=== PATIENT | female | born 1955 | race Asian ===

== ENCOUNTER 2017-02-15 13:10 | Emergency (ER) | payer BC, OTHER ==
[~2017-02-15] VITALS: Ht 157.5 cm; Wt 49.9 kg
--- NOTE | 2017-02-15 15:13 | Emergency Room Report ---
History of Present Illness General Chief Complaint: Multiple Trauma/Fall Source: Patient (Shilpa Rosenberg) Present Illness HPI 61 Yo female presents to the ED c/o Left knee pain, left shoulder pain and neck pain status post mechanical fall this afternoon, no LOC, not on blood thinning medications, no incontinence. reports abrasion to the left anterior knee, denies bruises, erythema or open lesions. pt. states she had one motrin this AM , but no medications since fall. denies dizziness prior to fall, palpitations, or lightheadedness. Denies numbness tingling or loss of sensation or gross motor movements of the extremities, incontinence of bowel or bladder. Denies CP , Palpitations, LOC, AMS, dizziness, Changes in Vision, Sensation, paresthesias , or a sudden severe headache. (Shilpa Rosenberg) Allergies: Coded Allergies: No Known Allergies (Unverified , 02/15/17) Patient History Past Medical History: see triage record Past Surgical History: none Pertinent Family History: none Last Menstrual Period: N/A Now: No Immunizations: UTD Reviewed Nursing Documentation: PMH: Agreed, PSxH: Agreed (Shilpa Rosenberg) Nursing Documentation-PMH Hx Hypertension: Yes - HIGH CHOLESTEROL (Shilpa Rosenberg) Review of Systems All Other Systems: negative except mentioned in HPI (Shilpa Rosenberg) Physical Exam Vital Signs Date Time Temp Pulse Resp B/P Pulse Ox O2 Delivery O2 Flow Rate FiO2 02/15/17 13:09 97.9 114 18 179/82 98 Room Air Sp02 EP Interpretation: reviewed, normal General Appearance: no apparent distress, alert, GCS 15, non-toxic Head: normocephalic, atraumatic Eyes: bilateral eye PERRL, bilateral eye normal inspection ENT: hearing grossly normal, normal pharynx, no angioedema, normal voice Neck: full range of motion, supple/symm/no masses, tender lateral - left lateral and midline ttp to c-spine, tender midline Respiratory: chest non-tender, lungs clear, normal breath sounds, speaking full sentences Cardiovascular #1: regular rate, rhythm, no edema Musculoskeletal: back normal, gait/station normal, normal range of motion, tender - TTP to the anterior left knee, no increased laxity, no obvious deformity, no swelling abrasion noted. TTp to the left shoulder with pain on ROM , no obvious deformities noted Neurologic: alert, oriented x3, responsive, motor strength/tone normal, sensory intact, speech normal Psychiatric: judgement/insight normal, memory normal, mood/affect normal Skin: normal color, warm/dry, well hydrated, abrasions - anterior left kene (Shilpa Rosenberg) Medical Decision Making PA Attestation Dr. Mcghee is my supervising Physician whom patient management has been discussed with. (Shilpa Rosenberg) Diagnostic Impression: Primary Impression: Contusion of knee, left Additional Impressions: Abrasion Shoulder contusion Qualified Codes: S40.012A - Contusion of left shoulder, initial encounter Acute strain of neck muscle Qualified Codes: S16.1XXA - Strain of muscle, fascia and tendon at neck level , initial encounter ER Course Pt. presents to the ED c/o Left knee pain, left shoulder pain and neck pain status post fall this afternoon, no LOC, not on blood thinning medications, no incontinence. Ddx considered but are not limited to Fracture, dislocation, contusion, Sprain/ Strain/Spasm. Vital signs: are WNL, pt. is afebrile H&PE are most consistent with abrasion and most likely soft tissue contusions will r/o fractures with imaging. ORDERS: - X-ray Left knee 3 views - negative for fx, Dislocation, or significant soft tissue injury, per preliminary read in ED by Dr. Stoddard electronically signed 02/15/2017 @ 1458 - X-ray Left Shoulder 3 views - negative for fx, Dislocation, or significant soft tissue injury, per preliminary read in ED by Dr. Stoddard electronically signed 02/15/2017 @ 1458 - X-ray C-Spine 3 views - negative for fx, Dislocation, or significant soft tissue injury, per preliminary read in ED by official radiology report. ED INTERVENTIONS: - Tylenol PO for pain -bacitracin is applied to abrasion by RN. DISCHARGE: At this time pt. is stable for d/c to home. Will provide printed patient care instructions, and any necessary prescriptions. Care plan and follow up instructions have been discussed with the patient prior to discharge. (Shilpa Rosenberg) Chest X-Ray Diagnostic Results Date Electronically Signed: Feb 17, 2017 Time Electronically Signed: 13:51 Interpreting ER Physician: josiah CRUZ Scribe Text Scribe documentation reviewed by me and is accurate (Som Mcghee M.D.) Other X-Ray Diagnostic Results X-Ray ordered: C-SPine # of Views/Limited Vs Complete: 3 View Interpretation: no fractures, no dislocation, no soft tissue swelling Indication: Pain Impression: No acute disease Date Electronically Signed: Feb 15, 2017 Time Electronically Signed: 18:17 Interpreting ER Physician: official radiology report. (Shilpa Rosenberg) Last Vital Signs Date Time Temp Pulse Resp B/P Pulse Ox O2 Delivery O2 Flow Rate FiO2 02/15/17 15:09 97.9 02/15/17 13:09 114 18 179/82 98 Room Air (Shilpa Rosenberg) Disposition: HOME, SELF-CARE Condition: Stable Scripts Acetaminophen* (TYLENOL EXTRA STRENGTH*) 500 Mg Tablet 500 MG ORAL Q6H, #20 TAB 0 Refills Prov: Shilpa Rosenberg 02/15/17 Patient Instructions: Abrasion, [id number], Contusion Additional Instructions: Take medications as directed. Follow up with PCP in 3-5 days Return sooner to ED if new symptoms occur, or current symptoms become worse. - Please note that this Emergency Department Report was dictated using [employer]learn[employer] technology software, occasionally this can lead to erroneous entry secondary to interpretation by the dictation equipment. Shilpa Rosenberg Feb 15, 2017 15:13 Som Mcghee M.D. Feb 17, 2017 13:51
[2017-02-15] MEDS ORDERED: TYLENOL EXTRA500 MG ORAL (15:29)
[2017-02-15] MEDS ORDERED: Bacitracin Oint UD TOPIC ONE (15:30)
[2017-02-15 15:54] VITALS: BP 145/78
[2017-02-15 15:57] VITALS: BP 145/78
--- NOTE | 2017-02-15 18:23 | Diagnostic Imaging Report ---
Indication: PAIN Technique: 3 views of the cervical spine Comparison: none Findings: Bony alignment is normal. No prevertebral soft tissue swelling. No acute fractures. No dislocations. Vertebral body heights and disc spaces are preserved. Impression: Negative
--- NOTE | 2017-02-15 18:26 | Diagnostic Imaging Report ---
Indications: PAIN Technique: Three views of the left knee Comparison: None Findings: No acute fractures. No dislocations. Joint spaces are preserved. No radiopaque foreign body. Normal mineralization. Impression: No acute process
--- NOTE | 2017-02-15 18:27 | Diagnostic Imaging Report ---
Indication: PAIN Technique: 3 views of the left shoulder Comparison: none Findings: No acute fractures. No dislocations. Joint spaces are preserved Impression:Negative
== END 2017-02-15 15:58 | disposition home or self-care (01) ==
LOC: EDBD 13:10 → EMR 13:45
DX: S80.02XA Contusion of left knee, initial encounter (principal); S40.012A Contusion of left shoulder, initial encounter; S40.212A Abrasion of left shoulder, initial encounter; S80.212A Abrasion, left knee, initial encounter; S16.1XXA Strain of muscle, fascia and tendon at neck level, initial encounter; W19.XXXA Unspecified fall, initial encounter; Y92.89 Other specified places as the place of occurrence of the external cause
CPT/HCPCS: 72040; 99284

== ENCOUNTER 2017-02-23 12:43 | Emergency (ER) | payer OTHER ==
[~2017-02-23] VITALS: Ht 157.5 cm; Wt 49.9 kg
[~2017-02-23 12:43] MED LIST: TYLENOL EXTRA500 MG ORAL
--- NOTE | 2017-02-23 13:08 | Emergency Room Report ---
History of Present Illness General Chief Complaint: Pain Source: Patient Present Illness HPI 61-year-old female presents emergency department for followup from fall one week ago. Patient states she still has some mild bruising and pain in the left knee that she rates as 6/10 in severity exacerbated upon walking. Patient denies any trauma or fall. Patient states that she did not fill her prescription as previously prescribed her. Patient states she also did not follow up with her primary care doctor because she felt it was non-necessary since she had a full physical performed by her primary care doctor several days before being evaluated here in the emergency department.Denies numbness tingling or loss of sensation or gross motor movements of the extremities, incontinence of bowel or bladder. Denies CP, Palpitations, LOC, AMS, dizziness, Changes in Vision, Sensation, paresthesias, or a sudden severe headache. Allergies: Coded Allergies: No Known Allergies (Unverified , 02/15/17) Patient History Past Medical History: see triage record Past Surgical History: none Pertinent Family History: none Last Menstrual Period: unk Now: No Immunizations: UTD Reviewed Nursing Documentation: PMH: Agreed, PSxH: Agreed Nursing Documentation-PMH Past Medical History: No History, Except For Hx Hypertension: Yes - HIGH CHOLESTEROL Review of Systems All Other Systems: negative except mentioned in HPI Physical Exam Vital Signs Date Time Temp Pulse Resp B/P Pulse Ox O2 Delivery O2 Flow Rate FiO2 02/23/17 12:54 98.6 79 16 153/83 97 Room Air Sp02 EP Interpretation: reviewed, normal General Appearance: no apparent distress, alert, GCS 15, non-toxic Head: normocephalic, atraumatic Eyes: bilateral eye PERRL, bilateral eye normal inspection ENT: hearing grossly normal, normal pharynx, no angioedema, normal voice Neck: full range of motion, supple/symm/no masses Respiratory: lungs clear, normal breath sounds, speaking full sentences Cardiovascular #1: regular rate, rhythm, no edema Musculoskeletal: back normal, gait/station normal, normal range of motion, tender - anterior left knee, old bruising noted-mild/yellow Neurologic: alert, oriented x3, responsive, motor strength/tone normal, sensory intact, speech normal Psychiatric: judgement/insight normal, memory normal, mood/affect normal Skin: no rash, warm/dry, well hydrated, other - anterior left knee, old bruising noted-mild/yellow Medical Decision Making PA Attestation Dr. Fishman is my supervising Physician whom patient management has been discussed with. Diagnostic Impression: Primary Impression: Encounter for medical screening examination Additional Impression: Knee pain, left Qualified Codes: M25.562 - Pain in left knee ER Course 61-year-old female presents emergency department for followup from fall one week ago. Patient states she still has some mild bruising and pain in the left knee that she rates as 6/10 in severity exacerbated upon walking. Patient denies any trauma or fall. Patient states that she did not fill her prescription as previously prescribed her. Patient states she also did not follow up with her primary care doctor because she felt it was non-necessary since she had a full physical performed by her primary care doctor several days before being evaluated here in the emergency department.Denies numbness tingling or loss of sensation or gross motor movements of the extremities, incontinence of bowel or bladder. Denies CP, Palpitations, LOC, AMS, dizziness, Changes in Vision, Sensation, paresthesias, or a sudden severe headache. Ddx considered but are not limited to Fracture, dislocation, contusion, Sprain/ Strain/Spasm,, non-compliance with follow up instructions and medications. Vital signs: are WNL, pt. is afebrile H&PE are most consistent with non-compliance with follow up instructions and medications. soft tissue contusion s/p fall last week. ORDERS: - X-ray imaging not warranted at this time, pt. was fully evaluated by myself last week and had x-rays and CT performed all of which were unremarkable, no new trauma. ED INTERVENTIONS: - D/w pt. that follow up instructions are important to follow, and discussed with pt. that I do not suspect and Emergency Medical Condition at this time. DISCHARGE: At this time pt. is stable for d/c to home. Will provide printed patient care instructions, and any necessary prescriptions. Care plan and follow up instructions have been discussed with the patient prior to discharge. Last Vital Signs Date Time Temp Pulse Resp B/P Pulse Ox O2 Delivery O2 Flow Rate FiO2 02/23/17 12:54 98.6 79 16 153/83 97 Room Air Disposition: HOME, SELF-CARE Condition: Stable Patient Instructions: Medical Screening Exam Additional Instructions: Follow up with PCP in 3-5 days Take previously prescribed medications as directed, may take Motrin as needed. - Please note that this Emergency Department Report was dictated using Gordon Gamesdocument improvement specialist technology software, occasionally this can lead to erroneous entry secondary to interpretation by the dictation equipment. Shilpa Rosenberg Feb 23, 2017 13:08
[2017-02-23 13:16] VITALS: BP 153/83
== END 2017-02-23 13:16 | disposition home or self-care (01) ==
LOC: EMR 13:06
DX: M25.562 Pain in left knee (principal); I10 Essential (primary) hypertension
CPT/HCPCS: 99282